=== PATIENT | male | born 1985 | race Caucasian/White ===

== ENCOUNTER 2024-04-01 09:09 | Outpatient (RCR) | payer OTHER, SELFPAY | END 2024-04-01 23:59 | disposition home or self-care (01) | LOC: RPT 09:09 | PROVIDERS: ATTENDING PHYSICIAN Specialist; FAMILY PHYSICIAN Internal Medicine Geriatric Medicine | DX: M25.562 Pain in left knee (principal); M25.362 Other instability, left knee; M22.42 Chondromalacia patellae, left knee; Z73.6 Limitation of activities due to disability | CPT/HCPCS: 97010; 97110; 97140; 97163; 97530 ==

== ENCOUNTER → 2024-04-20 09:48 | Outpatient (REF) | payer OTHER, SELFPAY | LOC: MRI 3T 09:48 | PROVIDERS: ATTENDING PHYSICIAN Physician Assistant Surgical; FAMILY PHYSICIAN Internal Medicine Geriatric Medicine | DX: M25.561 Pain in right knee (principal) | CPT/HCPCS: 73721 ==

== ENCOUNTER 2024-05-02 15:58 | Outpatient (RCR) | payer OTHER, SELFPAY | END 2024-05-02 23:59 | disposition home or self-care (01) | LOC: RPT 15:58 | PROVIDERS: ATTENDING PHYSICIAN Specialist; FAMILY PHYSICIAN Internal Medicine Geriatric Medicine | DX: M25.362 Other instability, left knee (principal); M25.562 Pain in left knee; M22.42 Chondromalacia patellae, left knee | CPT/HCPCS: 97110; 97112; 97530 ==

== ENCOUNTER 2024-05-17 09:01 | Outpatient (RCR) | payer OTHER, SELFPAY | END 2024-05-17 10:05 | disposition home or self-care (01) | LOC: RPT 09:01 | PROVIDERS: ATTENDING PHYSICIAN Specialist; FAMILY PHYSICIAN Internal Medicine Geriatric Medicine | DX: M25.362 Other instability, left knee (principal); M25.562 Pain in left knee; M22.42 Chondromalacia patellae, left knee; Z73.6 Limitation of activities due to disability | CPT/HCPCS: 97110; 97112; 97530 ==

== ENCOUNTER 2025-04-08 06:16 | Day surgery (SDC) | payer OTHER, SELFPAY | END 2025-04-08 12:37 | disposition home or self-care (01) | LOC: GI 06:16 | PROVIDERS: ATTENDING PHYSICIAN Surgery | DX: Z12.11 Encounter for screening for malignant neoplasm of colon (principal); K63.5 Polyp of colon; Z80.0 Family history of malignant neoplasm of digestive organs; Z86.0100 Personal history of colon polyps, unspecified; Z83.719 Family history of colon polyps, unspecified | CPT/HCPCS: 45380; 88305 ==